=== PATIENT | female | born 1970 | race Hispanic/Latino ===

== ENCOUNTER 2019-07-02 18:17 | Inpatient (IN) | payer MEDICAID, OTHER ==
[~2019-07-02] VITALS: Ht 129.5 cm; Wt 73.9 kg
[~2019-07-02 18:17] MED LIST: HEPARIN SODIUM 1000UNIT/ML 10ML VIAL IV ONE
[2019-07-02 20:49] VITALS: BP 123/69
--- NOTE | 2019-07-02 21:00 | NUR ---
[facility] nurse of was called and notified regarding patient 's admission and arrival and laboratory results.
[2019-07-02] MEDS ORDERED: DIPHENHYDRAMINE HCL 25 MG CAPSULE PO PRN (21:30)
[2019-07-02] MEDS ORDERED: ONDANSETRON HCL 4 MG/2 ML VIAL IVP PRN (21:30)
[2019-07-02] MEDS ORDERED: ACETAMINOPHEN 325 MG TAB PO PRN (21:30)
[2019-07-02 21:54] LABS: HEMATOCRIT 30.7 % (36-48); MEAN CORPUSCULAR HEMOGLOBIN 32.4 pg (27.0-33.0); MEAN CORPUSCULAR HGB CONC 35.8 g/dL (32.0-36.0); MEAN CORPUSCULAR VOLUME 90.3 fL (79-99); NUCLEATED RED BLOOD CELLS 0.5 % (0.0-0.19); RED BLOOD CELL COUNT(AUTO) 3.4 MIL/uL (4.00-5.50); RED CELL DISTRIBUTION WIDTH 11.9 % (11.0-15.5)
[2019-07-02 22:06] LABS: HEMOGLOBIN A1C 12.2 % (4.0-6.0)
[2019-07-02 22:09] LABS: INR 0.97 (0.85-1.15); PARTIAL THROMBOPLASTIN TIME 31.1 SEC (26.3-35.5); PROTHROMBIN TIME 10.5 SEC (9.6-11.6)
[2019-07-02 22:11] LABS: ALBUMIN 3.1 g/dL (3.5-5.0); TOTAL PROTEIN, SERUM 6.9 g/dL (6.0-8.3)
[2019-07-02 22:16] LABS: POTASSIUM 2.9 mmol/L (3.5-5.1)
[2019-07-02 22:25] LABS: BILIRUBIN,TOTAL 0.3 mg/dL (0.2-1.0)
[2019-07-02] MEDS ORDERED: LIDOCAINE HCL-MPF 1% 2ML VIAL IV PRN ×2 (22:30)
[2019-07-02] MEDS ORDERED: GLUCAGON 1MG KIT 1 MG ML IM PRN (22:30)
[2019-07-02] MEDS ORDERED: POTASSIUM CHLORIDE 20 MEQ ERTAB PO PRN (22:30)
[2019-07-02] MEDS ORDERED: POTASSIUM CHLORIDE 20MEQ/100ML 100 ML IV PRN (22:30)
[2019-07-02] MEDS ORDERED: DEXTROSE 50%-WATER 50 ML DISP.SYRIN IV PRN (22:30)
[2019-07-02] MEDS ORDERED: POTASSIUM CHLORIDE 10% ELIXIR 20 MEQ/15 ML UDCUP PO PRN (22:30)
[2019-07-02 23:00] VITALS: BP 137/76
--- NOTE | 2019-07-02 23:00 | NUR ---
Patient denies any discomfort at this time,due meds given.Instructed to be on NPO status post midnight and demonstrated understanding.
[2019-07-02] MEDS: ATORVASTATIN CALCIUM 40 MG TABLET PO SCH (23:13)
[2019-07-02] MEDS: METOPROLOL TARTRATE 25 MG TAB PO SCH (23:13)
[2019-07-02] MEDS: POTASSIUM CHLORIDE 20MEQ/100ML 100 ML IV PRN (23:14)
[2019-07-03] VITALS (55 sets, daily range): BP systolic 77–173; BP diastolic 43–87
--- NOTE | 2019-07-03 | NUR ---
Patient kept NPO at this time.Call light placed within her reach.
--- NOTE | 2019-07-03 01:52 | NUR ---
Consent obtained per another RN .
[2019-07-03] MEDS: INSULIN HUMULIN R 100 UNIT/ML 3ML SQ SCH ×4 (06:25→20:48)
--- NOTE | 2019-07-03 07:28 | NUR ---
Patient condition remained the same, endorsed cared to incoming NOD using SBAR,all questions answered.Patient remained NPO at this time for possible college.
[2019-07-03] MEDS ORDERED: MAGNESIUM 2GM PREMIX 50ML 50 ML IV ONE (08:10)
[2019-07-03] MEDS ORDERED: AMINOCAPROIC ACID 15,000 MG in SODIUM CHLORIDE 0.9% 500ML 420 ML IV PRN (08:45)
[2019-07-03] MEDS ORDERED: NOREPINEPHRINE BITARTRATE 8 MG in DEXTROSE 5%-WATER 250 ML IV PRN (08:45)
[2019-07-03] MEDS ORDERED: EPINEPHRINE 10 MG in SODIUM CHLORIDE 0.9% 240 ML IV PRN (08:45)
[2019-07-03] MEDS ORDERED: MAGNESIUM 2GM PREMIX 50ML 50 ML IV SCH (09:30)
[2019-07-03] MEDS ORDERED: CEFAZOLIN SODIUM 1 GM VIAL ONE (09:36)
[2019-07-03] MEDS ORDERED: PAPAVERINE HCL 30 MG/ML 2ML VIAL ONE (09:36)
[2019-07-03] MEDS ORDERED: NITROGLYCERIN 50 MG/D5% WATER 1 BOT ONE (10:12)
[2019-07-03] MEDS ORDERED: AMIODARONE HCL 50 MG/ML 3 ML VIAL ONE (10:12)
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
[2019-07-03] MEDS ORDERED: SODIUM CHLORIDE 0.9% 1000ML 1,000 ML IV ONE (10:32)
[2019-07-03] MEDS ORDERED: CEFAZOLIN SODIUM 1 GM VIAL IVP PRN (11:00)
--- NOTE | 2019-07-03 12:00 | NUR ---
KE[facility] PLAN PATIENT TRANSFERRED DOWN FOR CABG. NOT AVAILABLE FOR IA. QUINN WILL CONTINUE TO FOLLOW. Addendum: 07/03/19 at 1201 by ASHLY STEVENS RN CM Amended: Links added.
[2019-07-03] MEDS ORDERED: SODIUM BICARB 50MEQ 50ML VIAL ONE (12:37)
[2019-07-03] MEDS ORDERED: EPINEPHRINE 1 MG/ML AMPULE ONE (12:37)
[2019-07-03] MEDS ORDERED: ROCURONIUM 10MG/1ML SYR 10 MG/ML ML ONE (12:37)
[2019-07-03] MEDS ORDERED: HEPARIN SODIUM 1000UNIT/ML 10ML VIAL ONE (12:37)
[2019-07-03] MEDS ORDERED: ESMOLOL HCL 10 MG/ML 10 ML VIAL ONE (12:37)
[2019-07-03] MEDS ORDERED: MIDAZOLAM HCL 1 MG/ML 2ML VIAL ONE (12:37)
[2019-07-03] MEDS ORDERED: LIDOCAINE PF 2% 5ML ABBOJECT ONE (12:37)
[2019-07-03] MEDS ORDERED: PROPOFOL 10 MG/ML 20ML VIAL IV ONE (12:37)
[2019-07-03] MEDS ORDERED: FENTANYL CITRATE PF 50 MCG/1 ML 20ML VIAL IJ ONE (12:37)
[2019-07-03] MEDS ORDERED: AMINOCAPROIC ACID 250 MG/ML 20 ML VIAL IV ONE (12:37)
[2019-07-03] MEDS ORDERED: PROTAMINE SULFATE 10 MG/ML 25ML VIAL IV ONE (12:37)
[2019-07-03] MEDS ORDERED: NOREPINEPHRINE BITARTRATE 1 MG/1 ML ML IV ONE (12:37)
[2019-07-03] MEDS ORDERED: KETAMINE 50MG/ML SYRINGE 50 MG/ML DISP.SYRIN IV ONE (12:38)
[2019-07-03 13:14] LABS: ABG BASE EXCESS -1.1 mmol/L (-2.0-3.0); ABG HCO3 22.1 mmol/L (21.0-28.0); ABG OXYGEN SATURATION 98.6 % (95.0-99.0); ABG PCO2 32 mmHg (32-45)
--- NOTE | 2019-07-03 14:15 | NUR ---
REPORT GIVEN TO DARIEL LIVINGSTON VIA TELEPHONE AT THIS TIME; PATIENT REMAINS IN OR
[2019-07-03 14:46] LABS: ABG BASE EXCESS -2.7 mmol/L (-2.0-3.0); ABG HCO3 20.4 mmol/L (21.0-28.0); ABG OXYGEN SATURATION 98.7 % (95.0-99.0); ABG PCO2 29 mmHg (32-45)
[2019-07-03] MEDS ORDERED: SODIUM CHLORIDE 0.9% 500ML 500 ML IV SCH (14:57)
[2019-07-03] MEDS ORDERED: POTASSIUM PHOS 15 mMOL+NS250ML 250 ML IV PRN (15:00)
[2019-07-03] MEDS ORDERED: NITROGLYCERIN 50 MG/D5% WATER 250 BOT IV SCH (15:00)
[2019-07-03] MEDS ORDERED: MORPHINE SULFATE 2 MG/ML 1ML SYG IV PRN ×2 (15:00)
[2019-07-03] MEDS ORDERED: ONDANSETRON HCL 4 MG/2 ML VIAL IV PRN (15:00)
[2019-07-03] MEDS ORDERED: AMINOCAPROIC ACID 15,000 MG in SODIUM CHLORIDE 0.9% 250 ML IV SCH (15:00)
[2019-07-03] MEDS ORDERED: SODIUM CHLORIDE 0.9% 1000ML 1,000 ML IV SCH (15:00)
[2019-07-03] MEDS ORDERED: DEXTROSE 50%-WATER 50 ML DISP.SYRIN IV PRN (15:00)
[2019-07-03] MEDS ORDERED: SODIUM CHLORIDE 0.9% 10 ML VIAL IVP PRN (15:00)
[2019-07-03] MEDS ORDERED: MAGNESIUM 2GM PREMIX 50ML 50 ML IV PRN (15:00)
[2019-07-03] MEDS ORDERED: PROPOFOL 1000 MG/100 ML 100 ML IV PRN (15:00)
[2019-07-03] MEDS ORDERED: ACETAMINOPHEN 325 MG TAB PO PRN (15:00)
[2019-07-03] MEDS ORDERED: EPINEPHRINE 10 MG in DEXTROSE 5%-WATER 250 ML IV PRN (15:00)
[2019-07-03] MEDS ORDERED: POTASSIUM CHLORIDE 20MEQ/100ML 100 ML IV PRN (15:00)
[2019-07-03] MEDS ORDERED: TRAMADOL HCL 50 MG TABLET PO PRN ×2 (15:00)
[2019-07-03] MEDS ORDERED: CALCIUM GLUCONATE 1 GM in SODIUM CHLORIDE 0.9% 50 ML IV PRN (15:00)
[2019-07-03] MEDS ORDERED: ALBUMIN (HUMAN) 5% 250 ML IV PRN (15:00)
[2019-07-03] MEDS ORDERED: SODIUM BICARB 50MEQ 50ML VIAL IV PRN (15:00)
[2019-07-03] MEDS ORDERED: ACETAMINOPHEN 650 MG SUPPOSITORY RC PRN (15:00)
[2019-07-03] MEDS ORDERED: GLUCAGON 1MG KIT 1 MG ML IM PRN (15:00)
[2019-07-03] MEDS ORDERED: SODIUM CHLORIDE 0.9% 250 ML IV PRN (15:00)
[2019-07-03] MEDS ORDERED: NOREPINEPHRINE 4MG/NS 250ML 250 ML IV PRN (15:00)
--- NOTE | 2019-07-03 15:05 | NUR ---
RECEIVED PT FROM OR, SP CABG X2, PT ACCOMPANIED BY OR NURSES AND DR. CAVAZOS. PT ORALLY INTUBATED AND PLACED ON PRESCRIBED VENT SETTINGS. OG TUBE PLACEMENT VERIFIED AND PLACED ON LIWS WITH SCANT YELLOW OUTPUT. RT IJ CORDIS INTACT. PT ON AMICAR AT 50 ML/HR AND LEVOPHED AT 4 MCGS/MIN. PIV TO LEFT AC AREA INTACT. LEFT RADIAL ARTERIAL LINE INTACT. AL LINES LEVELED AND CALIBRATED WITH OPTIMUM WAVEFORM. DRESSING TO STERNUM INTACT. CT X2 TO -20 SMH20 SUCTION WITH SCANT SANGUINOUS OUTPUT. NO AIR LEAK OR CREPITUS NOTED. FC TO GRAVITY WITH CLEAR YELLOW URINE. SONIA WRAP TO LEFT DONOR LEG. HEMODYNAMICS NOTED ON COMPUTER. PT UNABLE TO OPEN EYES OR FOLLOW COMMANDS AT THIS TIME. NO S/S OF PAIN NOTED. CXR/LABS ORDERED COMPLETED. CONTINUE TO MONITOR PT.
[2019-07-03 15:21] LABS: ABG BASE EXCESS -3.5 mmol/L (-2.0-3.0); ABG HCO3 19.7 mmol/L (21.0-28.0); ABG OXYGEN SATURATION 98.2 % (95.0-99.0); ABG PCO2 29 mmHg (32-45)
[2019-07-03 15:30] LABS: HEMATOCRIT 26.6 % (36-48); MEAN CORPUSCULAR HEMOGLOBIN 32.3 pg (27.0-33.0); MEAN CORPUSCULAR HGB CONC 35.3 g/dL (32.0-36.0); MEAN CORPUSCULAR VOLUME 91.4 fL (79-99); NUCLEATED RED BLOOD CELLS 0.3 % (0.0-0.19); RED BLOOD CELL COUNT(AUTO) 2.91 MIL/uL (4.00-5.50); RED CELL DISTRIBUTION WIDTH 12.1 % (11.0-15.5); WHITE BLOOD COUNT (AUTO) 13.4 K/uL (4.8-10.8)
--- NOTE | 2019-07-03 15:31 | NUR ---
Pulled to ETT to 19cm at lip Addendum: 07/03/19 at 1532 by KARSTEN HARDWICK RT Amended: Links added.
[2019-07-03 15:46] LABS: CREATININE 0.7 mg/dL (0.5-1.5); INR 1.12 (0.85-1.15); MAGNESIUM 1.6 mg/dL (1.80-2.40); PARTIAL THROMBOPLASTIN TIME 26.4 SEC (26.3-35.5); PHOSPHORUS 3.9 mg/dL (2.5-4.9); POTASSIUM 3.3 mmol/L (3.5-5.1)
[2019-07-03] MEDS: POTASSIUM CHLORIDE 20MEQ/100ML 100 ML IV PRN ×3 (15:59→21:59)
[2019-07-03] MEDS: INSULIN REGULAR, HUMAN 3ML 100 UNIT in SODIUM CHLORIDE 0.9% 99 ML IV SCH ×2 (16:02)
[2019-07-03 16:59] LABS: ABG HCO3 22.4 mmol/L (21.0-28.0); ABG OXYGEN SATURATION 99.5 % (95.0-99.0); ABG PCO2 28 mmHg (32-45)
--- NOTE | 2019-07-03 17:00 | NUR ---
PT FULLY AWAKE, ABLE TO FOLLOW COMMANDS, NO NEURO DEFICIT NOTED. PT WITH STRONG BILATERAL HAND CREDIT INTERVIEWER AND ABLE TO SUSTAIN HEAD LIFT. WEANING FROM VENT INITIATED ORDERED. PT INSTRUCTED IN PROCESS AND USE OF HEART PILLOW. NODS UNDERSTANDING.
[2019-07-03 18:17] LABS: ABG BASE EXCESS 0.8 mmol/L (-2.0-3.0); ABG HCO3 24.1 mmol/L (21.0-28.0); ABG OXYGEN SATURATION 99.5 % (95.0-99.0); ABG PCO2 35 mmHg (32-45)
--- NOTE | 2019-07-03 18:25 | NUR ---
PT AWAKE AND FOLLOWING COMMANDS, TOLERATED WEANING FROM VENT. WEANING PARAMETERS COMPLETED, PT WITH NIP-33 AND VITAL CAPACITY OF 900ML. PT EXTUBATED PER CV PROTOCOL. PLACED ON AFM 40 %. TOLERATED WELL. INSTRUCTEDON DEEP BREATHING AND USE OF HEART PILLOW. NODS UNDERSTANDING.
[2019-07-03] MEDS ORDERED: ALBUMIN (HUMAN) 5% 250 ML IV ONE (18:48)
[2019-07-03 20:19] LABS: ABG BASE EXCESS 0.5 mmol/L (-2.0-3.0); ABG HCO3 25.4 mmol/L (21.0-28.0); ABG OXYGEN SATURATION 99.2 % (95.0-99.0); ABG PCO2 42 mmHg (32-45)
[2019-07-03] MEDS: CEFAZOLIN SODIUM 1 GM VIAL IV SCH (20:47)
[2019-07-03] MEDS: ATORVASTATIN CALCIUM 40 MG TABLET PO SCH (20:47)
[2019-07-03] MEDS: METOPROLOL TARTRATE 25 MG TAB PO SCH (20:48)
[2019-07-03 21:15] LABS: MAGNESIUM 2.4 mg/dL (1.80-2.40); POTASSIUM 3.5 mmol/L (3.5-5.1)
[2019-07-03] MEDS: TRAMADOL HCL 50 MG TABLET PO PRN (21:58)
[2019-07-04] VITALS (90 sets, daily range): BP systolic 86–155; BP diastolic 42–82
[2019-07-04 04:22] LABS: MEAN CORPUSCULAR HEMOGLOBIN 32.7 pg (27.0-33.0); MEAN CORPUSCULAR HGB CONC 35.2 g/dL (32.0-36.0); MEAN CORPUSCULAR VOLUME 92.7 fL (79-99); RED BLOOD CELL COUNT(AUTO) 2.48 MIL/uL (4.00-5.50); RED CELL DISTRIBUTION WIDTH 12.2 % (11.0-15.5); WHITE BLOOD COUNT (AUTO) 14.3 K/uL (4.8-10.8)
[2019-07-04] MEDS: CEFAZOLIN SODIUM 1 GM VIAL IV SCH ×2 (04:27→13:58)
[2019-07-04] MEDS: TRAMADOL HCL 50 MG TABLET PO PRN ×2 (04:28→17:46)
[2019-07-04 04:44] LABS: CREATININE 0.7 mg/dL (0.5-1.5); PHOSPHORUS 4.5 mg/dL (2.5-4.9); POTASSIUM 3.8 mmol/L (3.5-5.1)
[2019-07-04 05:04] LABS: INR 0.96 (0.85-1.15); PARTIAL THROMBOPLASTIN TIME 27.2 SEC (26.3-35.5); PROTHROMBIN TIME 10.4 SEC (9.6-11.6)
[2019-07-04] MEDS: INSULIN HUMULIN R 100 UNIT/ML 3ML SQ SCH ×4 (06:43→20:45)
[2019-07-04] MEDS: POTASSIUM CHLORIDE 20MEQ/100ML 100 ML IV PRN (06:43)
--- NOTE | 2019-07-04 07:40 | NUR ---
PT HAS CONFIRMED DVT TO LEFT LEG AND ONLY HAS FARHAT STOCKING TO THE LEFT LEG. RIGHT LEG HAS FARHAT STOCKING AND SCD. Addendum: 07/04/19 at 1015 by JIM CASTANO RN RN Amended: Links added.
[2019-07-04] MEDS: FUROSEMIDE 10 MG/ML 2ML VIAL IV SCH ×2 (08:44→20:40)
[2019-07-04] MEDS: CLOPIDOGREL BISULFATE 75 MG TAB PO SCH (08:45)
[2019-07-04] MEDS ORDERED: ASPIRIN 325MG EC TAB 325 MG TABLET.DR PO SCH (09:00)
[2019-07-04] MEDS ORDERED: FAMOTIDINE/PF 20 MG/2 ML VIAL IV SCH (09:00)
[2019-07-04] MEDS: FAMOTIDINE 20MG TAB 20 MG TAB PO SCH (10:45)
--- NOTE | 2019-07-04 12:45 | NUR ---
DC PLAN VISITED WITH PATIENT. PATIENT LABILE. CALLED DAUGHTER ON FACE SHEET. PATIENT LIVES WITH DAUGHTER LOCALLY. NOT SURE ON THE ADDRESS ACCORDING TO OTHER DAUGHTER. INDEPENDENT ABLE TO PERFORM ADL'S. NO SERVICES OR DME'S. PLAN IS TO DC HOME. Addendum: 07/04/19 at 1246 by ASHLY STEVENS RN CM Amended: Links added.
[2019-07-04] MEDS: ATORVASTATIN CALCIUM 40 MG TABLET PO SCH (20:44)
[2019-07-04] MEDS: METOPROLOL TARTRATE 25 MG TAB PO SCH (20:45)
[2019-07-04] MEDS: INSULIN REGULAR, HUMAN 3ML 100 UNIT in SODIUM CHLORIDE 0.9% 99 ML IV SCH ×2 (21:00)
[2019-07-05] VITALS (74 sets, daily range): BP systolic 77–149; BP diastolic 30–74
[2019-07-05] MEDS: TRAMADOL HCL 50 MG TABLET PO PRN (04:12)
[2019-07-05 04:52] LABS: HEMATOCRIT 24.2 % (36-48); MEAN CORPUSCULAR HEMOGLOBIN 32.5 pg (27.0-33.0); MEAN CORPUSCULAR HGB CONC 34.3 g/dL (32.0-36.0); MEAN CORPUSCULAR VOLUME 94.9 fL (79-99); NUCLEATED RED BLOOD CELLS 0.1 % (0.0-0.19); RED BLOOD CELL COUNT(AUTO) 2.55 MIL/uL (4.00-5.50); RED CELL DISTRIBUTION WIDTH 12.5 % (11.0-15.5); WHITE BLOOD COUNT (AUTO) 20.9 K/uL (4.8-10.8)
[2019-07-05 05:17] LABS: CREATININE 1.1 mg/dL (0.5-1.5); MAGNESIUM 1.8 mg/dL (1.80-2.40); PHOSPHORUS 3.3 mg/dL (2.5-4.9); POTASSIUM 3.9 mmol/L (3.5-5.1)
[2019-07-05] MEDS: POTASSIUM CHLORIDE 20MEQ/100ML 100 ML IV PRN (05:58)
[2019-07-05] MEDS: INSULIN HUMULIN R 100 UNIT/ML 3ML SQ SCH ×4 (07:15→21:13)
--- NOTE | 2019-07-05 07:45 | NUR ---
PT'S HEART RHYTHM SHOWING RSR WITH ST ELEVATION AN EKG WAS OBTAINED AND LAB WORK WAS DONE. TEXTED PICTURE OF EKG TO ISHMAEL AND HAD CALLED DR. LOZADA AND LEFT VOICEMAIL. DR. WALLER WAS CALLED AND ORDERS NOTED.
[2019-07-05 08:32] LABS: TROPONIN I 3.79 ng/mL (0.00-0.06)
[2019-07-05 08:33] LABS: TROPONIN I 3.42 ng/mL (0.00-0.06)
[2019-07-05] MEDS ORDERED: ASPIRIN 81MG TAB.CHEW PO SCH ×2 (09:00)
[2019-07-05] MEDS: METOPROLOL TARTRATE 25 MG TAB PO SCH ×2 (09:00→21:30)
--- NOTE | 2019-07-05 09:15 | NUR ---
2D ECHO WAS DONE AND DR. GALINDO HAS BEEN PAGED AND WILL NOTIFY OF LABS AND EKG.
--- NOTE | 2019-07-05 10:12 | NUR ---
PT WAS ASSESSED BY DR. LOZADA AND ORDERS NOTED.
[2019-07-05] MEDS ORDERED: NITROGLYCERIN 1GM/1 INCH PACKET TD SCH (10:30)
[2019-07-05] MEDS: FUROSEMIDE 20 MG TABLET PO SCH ×2 (10:30→17:49)
[2019-07-05] MEDS: CLOPIDOGREL BISULFATE 75 MG TAB PO SCH (10:31)
[2019-07-05] MEDS: FAMOTIDINE 20MG TAB 20 MG TAB PO SCH (10:35)
[2019-07-05] MEDS: AMIODARONE HCL 200 MG TABLET PO SCH (10:35)
[2019-07-05] MEDS: ASPIRIN 81MG TAB.CHEW PO SCH (10:36)
[2019-07-05] MEDS: NITROGLYCERIN 1GM/1 INCH PACKET TD SCH ×2 (10:38→17:50)
--- NOTE | 2019-07-05 10:45 | NUR ---
PT STATES THAT THE PAIN HAS SUBSIDED, PT HAS BEEN ON TRIDIL DRIP SINCE THIS AM.
--- NOTE | 2019-07-05 15:00 | NUR ---
PT OUT OF BED WITH ASSISTANCE FROM PHYSICAL THERAPY. TOLERATED WITHOUT CHEST PAIN, SHORTNESS OF BREATH OR HYPOTENSION. STRONG GAIT
[2019-07-05] MEDS: ATORVASTATIN CALCIUM 40 MG TABLET PO SCH (21:01)
--- NOTE | 2019-07-05 21:45 | NUR ---
[facility] DR GALINDO AT BEDSIDE. REVIEWED EKG AND ST ELEVATION CHANGES AND VITALS ON BEDSIDE MONITOR. SUSPECTS PERICARDITIS. ORDERS TO REMOVE NITRO PATCH.
[2019-07-06] VITALS (41 sets, daily range): BP systolic 82–130; BP diastolic 39–76
[2019-07-06] MEDS: METOPROLOL TARTRATE 25 MG TAB PO SCH ×4 (00:31→20:22)
[2019-07-06] MEDS: NITROGLYCERIN 1GM/1 INCH PACKET TD SCH (00:47)
[2019-07-06 05:28] LABS: HEMATOCRIT 24.7 % (36-48); MEAN CORPUSCULAR HEMOGLOBIN 31.8 pg (27.0-33.0); MEAN CORPUSCULAR HGB CONC 34.4 g/dL (32.0-36.0); MEAN CORPUSCULAR VOLUME 92.5 fL (79-99); NUCLEATED RED BLOOD CELLS 0.1 % (0.0-0.19); RED BLOOD CELL COUNT(AUTO) 2.67 MIL/uL (4.00-5.50); RED CELL DISTRIBUTION WIDTH 12.5 % (11.0-15.5); WHITE BLOOD COUNT (AUTO) 14.2 K/uL (4.8-10.8)
[2019-07-06 05:32] LABS: CREATININE 0.8 mg/dL (0.5-1.5); POTASSIUM 4.4 mmol/L (3.5-5.1)
--- NOTE | 2019-07-06 06:00 | NUR ---
OOB PATIENT OOB TO CHAIR. TOLERATED ACTIVITY WELL. FULL WEIGHT BEARING. NO EPISODES OF HYPOTENSION. POSITIONED TO COMFORT
[2019-07-06] MEDS: INSULIN HUMULIN R 100 UNIT/ML 3ML SQ SCH ×4 (07:14→20:32)
[2019-07-06] MEDS: CLOPIDOGREL BISULFATE 75 MG TAB PO SCH (07:44)
[2019-07-06] MEDS: FUROSEMIDE 20 MG TABLET PO SCH ×2 (07:44→16:48)
[2019-07-06] MEDS: AMIODARONE HCL 200 MG TABLET PO SCH (07:44)
[2019-07-06] MEDS: ASPIRIN 81MG TAB.CHEW PO SCH (07:45)
[2019-07-06] MEDS: TRAMADOL HCL 50 MG TABLET PO PRN ×3 (07:45→15:29)
[2019-07-06] MEDS: ENOXAPARIN SODIUM 30 MG/0.3 ML SQ SCH (07:46)
--- NOTE | 2019-07-06 08:59 | NUR ---
BACK TO BED, STEADY GAIT, NO SHORTNESS OF BREATH OR CHEST PAIN WITH MOVEMENT
[2019-07-06] MEDS ORDERED: AMIODARONE HCL 200 MG TABLET PO SCH (09:00)
[2019-07-06] MEDS: FAMOTIDINE 20MG TAB 20 MG TAB PO SCH (10:30)
--- NOTE | 2019-07-06 11:05 | NUR ---
OUT OF BED, FULL WEIGHT BEARING. STERNAL PRECAUTIONS BEING TAUGHT. TOLERATED BEING OUT OF BED WITHOUT SOB OR CHEST PAIN
--- NOTE | 2019-07-06 11:10 | NUR ---
TAFOYA AND ARTERIAL LINE REMOVED WITHOUT INCIDENT.
--- NOTE | 2019-07-06 15:30 | NUR ---
BACK IN BED WITH ASSIST. REMOVED CHEST TUBES AND CORDIS, PRESSURE DRESSINGS APPLIED. NEW IV TO LEFT AC 20GAUGE
[2019-07-06] MEDS: DOCUSATE SODIUM 100 MG CAP PO SCH (16:48)
[2019-07-06] MEDS ORDERED: INSU100I45 SQ (17:07)
--- NOTE | 2019-07-06 19:11 | NUR ---
PCCU TRANSFER WITHOUT INCDENT. UP OUT OF BED TO VOID
[2019-07-06] MEDS: ATORVASTATIN CALCIUM 40 MG TABLET PO SCH (20:22)
[2019-07-06] MEDS: INSULIN NPH 100 UNIT/ML 3ML SQ SCH (20:34)
[2019-07-07] VITALS (7 sets, daily range): BP systolic 94–135; BP diastolic 59–74
[2019-07-07 04:25] LABS: HEMATOCRIT 26.1 % (36-48); MEAN CORPUSCULAR HEMOGLOBIN 32.4 pg (27.0-33.0); MEAN CORPUSCULAR HGB CONC 34.5 g/dL (32.0-36.0); MEAN CORPUSCULAR VOLUME 93.9 fL (79-99); RED BLOOD CELL COUNT(AUTO) 2.78 MIL/uL (4.00-5.50); RED CELL DISTRIBUTION WIDTH 12.7 % (11.0-15.5); WHITE BLOOD COUNT (AUTO) 11.2 K/uL (4.8-10.8)
[2019-07-07 05:10] LABS: CREATININE 0.9 mg/dL (0.5-1.5); POTASSIUM 4.1 mmol/L (3.5-5.1)
[2019-07-07] MEDS: INSULIN HUMULIN R 100 UNIT/ML 3ML SQ SCH ×4 (05:24→21:32)
[2019-07-07] MEDS: CLOPIDOGREL BISULFATE 75 MG TAB PO SCH (09:34)
[2019-07-07] MEDS: DOCUSATE SODIUM 100 MG CAP PO SCH ×2 (09:34→17:55)
[2019-07-07] MEDS: AMIODARONE HCL 200 MG TABLET PO SCH (09:35)
[2019-07-07] MEDS: FUROSEMIDE 20 MG TABLET PO SCH ×2 (09:35→17:55)
[2019-07-07] MEDS: ASPIRIN 81MG TAB.CHEW PO SCH (09:35)
[2019-07-07] MEDS: ENOXAPARIN SODIUM 30 MG/0.3 ML SQ SCH (09:35)
[2019-07-07] MEDS: METOPROLOL TARTRATE 25 MG TAB PO SCH ×3 (09:36→21:30)
[2019-07-07] MEDS: INSULIN NPH 100 UNIT/ML 3ML SQ SCH ×2 (09:38→21:27)
[2019-07-07] MEDS: FAMOTIDINE 20MG TAB 20 MG TAB PO SCH (10:45)
--- NOTE | 2019-07-07 16:00 | NUR ---
SPOKE WITH DR. LOZADA REGARDING ANTICOAGULATION R/T DVT LEFT SUPERFICIAL FEMORAL VEIN, DR. LOZADA STATED PATIENT MIGHT HAVE GOTTEN A FILTER PLACED IN [place], WILL REVIEW RECORDS
--- NOTE | 2019-07-07 18:00 | NUR ---
AFTER REVIEW OF RECORDS, PLACEMENT OF AN IVF FILTER IS NOT SEEN IN [place] RECORDS. LEFT MESSAGE WITH DR. LOZADA PENDING CALL BACK
[2019-07-07] MEDS: ATORVASTATIN CALCIUM 40 MG TABLET PO SCH (21:03)
[2019-07-08 04:00] VITALS: BP 105/61
[2019-07-08] MEDS: INSULIN HUMULIN R 100 UNIT/ML 3ML SQ SCH ×4 (06:22→20:53)
[2019-07-08 07:30] VITALS: BP 106/58
[2019-07-08 08:10] LABS: HEMATOCRIT 29.4 % (36-48); MEAN CORPUSCULAR HEMOGLOBIN 32.5 pg (27.0-33.0); MEAN CORPUSCULAR VOLUME 95.5 fL (79-99); NUCLEATED RED BLOOD CELLS 0.6 % (0.0-0.19); RED BLOOD CELL COUNT(AUTO) 3.08 MIL/uL (4.00-5.50); RED CELL DISTRIBUTION WIDTH 12.7 % (11.0-15.5); WHITE BLOOD COUNT (AUTO) 8.6 K/uL (4.8-10.8)
[2019-07-08 08:18] LABS: POTASSIUM 4.1 mmol/L (3.5-5.1)
[2019-07-08] MEDS: CLOPIDOGREL BISULFATE 75 MG TAB PO SCH (09:16)
[2019-07-08] MEDS: DOCUSATE SODIUM 100 MG CAP PO SCH ×2 (09:16→17:19)
[2019-07-08] MEDS: FUROSEMIDE 20 MG TABLET PO SCH ×2 (09:17→17:24)
[2019-07-08] MEDS: METOPROLOL TARTRATE 25 MG TAB PO SCH ×3 (09:17→20:53)
[2019-07-08] MEDS: AMIODARONE HCL 200 MG TABLET PO SCH (09:17)
[2019-07-08] MEDS: ASPIRIN 81MG TAB.CHEW PO SCH (09:18)
[2019-07-08] MEDS: ENOXAPARIN SODIUM 30 MG/0.3 ML SQ SCH (09:18)
[2019-07-08] MEDS: INSULIN NPH 100 UNIT/ML 3ML SQ SCH ×2 (09:26→20:51)
[2019-07-08] MEDS: FAMOTIDINE 20MG TAB 20 MG TAB PO SCH (10:45)
[2019-07-08 12:00] VITALS: BP 109/68
--- NOTE | 2019-07-08 13:10 | NUR ---
CALL OUT PLACED TO DR. LOZADA, NO ANSWER, LEFT MESSAGE REGARDING ANTICOAGULATION FOR DVT TO LEFT SUPERFICIAL FEMORAL VEIN, WELL NOTIFICATION OF PLATELET COUNT OF 515, TRENDING UP. PENDING CALL BACK
[2019-07-08 15:30] VITALS: BP 117/70
--- NOTE | 2019-07-08 18:25 | NUR ---
RESULTS OF BILATERAL VENOUS DOPPLER STUDY CALLED IN TO DR. LOZADA. NEGATIVE FOR DVT. REPORTED OFF TO DARIEL ANN.
[2019-07-08 20:22] VITALS: BP 131/60
[2019-07-08] MEDS: ATORVASTATIN CALCIUM 40 MG TABLET PO SCH (20:49)
[2019-07-08 23:27] VITALS: BP 142/66
[2019-07-09 03:32] VITALS: BP 155/90
[2019-07-09] MEDS: INSULIN HUMULIN R 100 UNIT/ML 3ML SQ SCH ×2 (05:25→10:54)
[2019-07-09] MEDS: FAMOTIDINE 20MG TAB 20 MG TAB PO SCH (06:54)
[2019-07-09] MEDS: AMIODARONE HCL 200 MG TABLET PO SCH (07:42)
[2019-07-09] MEDS: DOCUSATE SODIUM 100 MG CAP PO SCH (07:42)
[2019-07-09] MEDS: METOPROLOL TARTRATE 25 MG TAB PO SCH (07:42)
[2019-07-09] MEDS: FUROSEMIDE 20 MG TABLET PO SCH (07:42)
[2019-07-09] MEDS: CLOPIDOGREL BISULFATE 75 MG TAB PO SCH (07:42)
[2019-07-09] MEDS: ASPIRIN 81MG TAB.CHEW PO SCH (07:42)
[2019-07-09] MEDS: INSULIN NPH 100 UNIT/ML 3ML SQ SCH (07:44)
[2019-07-09 07:58] VITALS: BP 116/69
--- NOTE | 2019-07-09 08:00 | NUR ---
ASSESSMENT PT IS AAOX3 DENIES CP DENIES SOB DENIES NV NO COMPLAINTS RESTING SITTING UPRIGHT CARDIAC CHAIR. STERNAL INCISION OPEN TO AIR CLEAN DRY AND INTACT. ENCOURAGED COUGH AND DEEP BREATHING WITH HEART PILLOW SPLINTING, ENCOURAGED USE OF IS 10XS Q1HR. CALL LIGHT WITHIN REACH.
[2019-07-09 08:34] LABS: HEMATOCRIT 31.7 % (36-48); MEAN CORPUSCULAR HEMOGLOBIN 31.9 pg (27.0-33.0); MEAN CORPUSCULAR HGB CONC 33.1 g/dL (32.0-36.0); MEAN CORPUSCULAR VOLUME 96.4 fL (79-99); NUCLEATED RED BLOOD CELLS 0.2 % (0.0-0.19); RED BLOOD CELL COUNT(AUTO) 3.29 MIL/uL (4.00-5.50); WHITE BLOOD COUNT (AUTO) 10.1 K/uL (4.8-10.8)
[2019-07-09 08:53] LABS: CREATININE 1.1 mg/dL (0.5-1.5); MAGNESIUM 1.9 mg/dL (1.80-2.40); POTASSIUM 3.6 mmol/L (3.5-5.1)
[2019-07-09] MEDS ORDERED: ATOR40TA69 PO (11:11)
[2019-07-09] MEDS ORDERED: METO25 PO (11:11)
[2019-07-09] MEDS ORDERED: CLOP75TA14 PO (11:11)
[2019-07-09] MEDS ORDERED: ASPI-1005 PO (11:11)
[2019-07-09 11:24] VITALS: BP 100/62
[2019-07-09] MEDS ORDERED: AMIO200T44 PO (13:05)
[2019-07-09] MEDS ORDERED: FURO20TA6 PO (13:05)
--- NOTE | 2019-07-09 14:15 | NUR ---
DISCHARGE INSTRUCTIONS GIVEN TO PATIENT. AGREE TO TAKE MEDS ORDERED AGREE TO FOLLOW UP WITH [facility] ORDERED, PATIENT HAS APPOINTMENT TIMES WITH DC PACKET. ALL QUESTIONS ANSWERED. PIV REMOVED CATH TIP INTACT, TELE PACK REMOVED. CT SUTURES REMOVED STERI STRIPS PLACED TO SITES. DC MED SCRIPTS CALLED IN TO [facility]. PATIENT IS AWAITING RIDE.
--- NOTE | 2019-07-09 15:35 | NUR ---
RIDE HERE TO DAMAGE ASSESSOR PATIENT ALL BELONGINGS TAKEN WITH PATIENT. DOWN VIA WC WITH NURSE AIDE.
== END 2019-07-09 15:51 | disposition home or self-care (01) | DRG 236 ==
LOC: 4DH 20:45 → 2CV 07-03 11:29 → 2BH 07-04 06:08 → 4BH 07-06 19:02
PROVIDERS: ADMIT Thoracic Surgery (Cardiothoracic Vascular Surgery); ATTEND Thoracic Surgery (Cardiothoracic Vascular Surgery)
PROC: 02100Z9 Bypass Coronary Artery, One Artery from Left Internal Mammary, Open Approach (ICD-10-PCS; principal; 2019-07-03 12:29)
PROC: 021009W Bypass Coronary Artery, One Artery from Aorta with Autologous Venous Tissue, Open Approach (ICD-10-PCS; 2019-07-03 12:29)
PROC: 06BQ4ZZ Excision of Left Saphenous Vein, Percutaneous Endoscopic Approach (ICD-10-PCS; 2019-07-03 12:29)
PROC: 30233N1 Transfusion of Nonautologous Red Blood Cells into Peripheral Vein, Percutaneous Approach (ICD-10-PCS; 2019-07-04)
DX: I21.4 Non-ST elevation (NSTEMI) myocardial infarction (principal); A02.9 Salmonella infection, unspecified; A07.1 Giardiasis [lambliasis]; I31.9 Disease of pericardium, unspecified; I82.419 Acute embolism and thrombosis of unspecified femoral vein; I25.110 Atherosclerotic heart disease of native coronary artery with unstable angina pectoris; R19.7 Diarrhea, unspecified; E11.9 Type 2 diabetes mellitus without complications; D64.9 Anemia, unspecified; E78.00 Pure hypercholesterolemia, unspecified; E78.5 Hyperlipidemia, unspecified; E87.70 Fluid overload, unspecified; I48.91 Unspecified atrial fibrillation; G40.909 Epilepsy, unspecified, not intractable, without status epilepticus; I10 Essential (primary) hypertension; Z79.4 Long term (current) use of insulin; I25.2 Old myocardial infarction; Z79.02 Long term (current) use of antithrombotics/antiplatelets; Z79.82 Long term (current) use of aspirin; Z79.899 Other long term (current) drug therapy; Z86.718 Personal history of other venous thrombosis and embolism
CPT/HCPCS: 36415; 36430; 71045; 80048; 80053; 80061; 82330; 82435; 82550; 82803; 82947; 82948; 83036; 83605; 83735; 83874; 83880; 84100; 84132; 84295; 84484; 85018; 85027; 85347; 85610; 85730; 86850; 86900; 86901; 86922; 93005; 93306; 93356; 93880; 93970; 94002; 94010; 94150; 97039; A4357; A7048; C1729; G0378; J0171; J0282; J0690; J1644; J1650; J1815; J1940; J2001; J2250; J2405; J2440; J2704; J2720; J3010; J3475; J3480; J3490; J7030; J7040; J7050; P9016; P9045; Q0163